=== PATIENT | female | born 1945 | race Two or more races ===

== ENCOUNTER 2018-06-06 12:25 | Outpatient (CLI) | payer OTHER ==
[~2018-06-06 12:25] MED LIST: ACTONEL35 MG PO; MEDROL2 MG PO; PROTECT PLUS L237 ML PO
== END 2018-06-06 12:31 | disposition home or self-care (01) ==
LOC: SONOGRAMA 12:25
DX: S96.911A Strain of unspecified muscle and tendon at ankle and foot level, right foot, initial encounter (principal); S96.912A Strain of unspecified muscle and tendon at ankle and foot level, left foot, initial encounter

== ENCOUNTER 2020-03-08 14:28 | Outpatient (CLI) | payer OTHER | END 2020-03-08 14:39 | disposition home or self-care (01) | LOC: MRI 14:28 | PROVIDERS: ATTEND Physical Medicine & Rehabilitation | DX: G95.29 Other cord compression (principal); M54.2 Cervicalgia | CPT/HCPCS: 72141 ==

== ENCOUNTER 2021-01-13 07:16 | Outpatient (CLI) | payer OTHER | END 2021-01-13 07:24 | disposition home or self-care (01) | LOC: NUCLEAR 07:16 | PROVIDERS: ATTEND Internal Medicine Rheumatology | DX: I87.2 Venous insufficiency (chronic) (peripheral) (principal); I82.493 Acute embolism and thrombosis of other specified deep vein of lower extremity, bilateral ==

== ENCOUNTER 2022-01-26 09:47 | Outpatient (CLI) | payer OTHER | END 2022-01-26 09:48 | disposition home or self-care (01) | LOC: NUCLEAR 09:47 | PROVIDERS: ATTEND Internal Medicine Rheumatology | DX: M81.0 Age-related osteoporosis without current pathological fracture (principal); Z88.2 Allergy status to sulfonamides; Z88.0 Allergy status to penicillin; Z88.8 Allergy status to other drugs, medicaments and biological substances ==

== ENCOUNTER 2024-02-19 13:23 | Outpatient (CLI) | payer OTHER | END 2024-02-19 13:25 | disposition home or self-care (01) | LOC: NUCLEAR 13:23 | PROVIDERS: ATTEND Internal Medicine Rheumatology | DX: M81.0 Age-related osteoporosis without current pathological fracture (principal) ==